=== PATIENT | male | born 1980 | race Caucasian/White ===

== ENCOUNTER 2017-10-16 18:46 | Emergency (ER) | payer OTHER ==
[~2017-10-16] VITALS: Ht 175.3 cm; Wt 110.0 kg
[2017-10-16 19:00] VITALS: TEMP 36.7; Ht 175.3 cm; Wt 110.0 kg
[2017-10-16] MEDS ORDERED: DOXE10CA PO (19:42)
[2017-10-16] MEDS ORDERED: SUMA25TA12 PO (19:42)
[2017-10-16] MEDS ORDERED: DEPRESSION MED PO (19:43)
[2017-10-16] MEDS ORDERED: CEFTRIAXONE SOD 350MG/ML 1 GM VIAL IM STA (20:42)
[2017-10-16] MEDS ORDERED: AZITHROMYCIN 250 MG TAB PO STA (20:42)
--- NOTE | 2017-10-16 20:50 | EMERGENCY ROOM VISIT NOTE ---
ED Visit Note First contact with patient: 19:03 CHIEF COMPLAINT: Burning with urination and penile discharge HISTORY OF PRESENT ILLNESS: This 37-year-old male patient presents to the emergency department, ambulatory, complaining of burning with urination and penile discharge for the past 2-3 days. The patient states he initially noticed the burning with urination, then today noticed a sticky, thick drainage coming from the tip of the penis which does appear to be blood tinged on his boxers. The patient states there is been no blood in his urine. He denies any systemic symptoms including fever, chills, nausea, vomiting, or abdominal pain. The patient denies any history of UTIs or STDs. He states he is sexually active, and did recently have a one night stand with a male partner approximately one month ago. The patient has taken no medication for the discomfort. REVIEW OF SYSTEMS: A 6 system review of systems was performed with positives and pertinent negatives listed in the history of present illness. All other systems were reviewed and are negative. ALLERGIES: None MEDICATIONS: Doxepin, Prozac PMH: Mood disorder SOCIAL HISTORY: The patient lives locally with family. He denies drug, alcohol , tobacco use. PHYSICAL EXAM: VITALS: Vitals are noted on the nurse's note and reviewed by myself. Vital signs stable. GENERAL: This is a 37-year-old white male, in no acute distress, nondiaphoretic , well-developed well-nourished. ABDOMEN - Abdominal contour normal without pulsations or visible masses. BS normoactive all four quadrants. No tenderness to palpation appreciated throughout. No palpable masses, hepatosplenomegaly, or ascites noted. GENITOURINARY - Circumcised male without penile lesions or adhesions. Thick, yellow urethral discharge. No testicular tenderness to palpation appreciated. No palpable masses. No blue dot sign. Urethral swab was obtained. PSYCH - A&Ox3 and cooperates fully with examiner. Pt is very pleasant and interacts well with examiner. EMERGENCY DEPARTMENT COURSE: The patient was seen and evaluated as above. Urethral swab obtained and urinalysis was ordered. Urinalysis did show blood, leukocyte esterase, and white blood cells. The abnormalities on the urinalysis are related to the penile discharge and possible STD, however I am still concerned for UTI. The patient will be treated prophylactically with Rocephin and azithromycin, and cultures will be ordered. The patient already has an appointment scheduled to follow up with his PCP on Thursday, so I encouraged him to keep this appointment to discuss culture results. The patient is in agreement with the assessment and plan. All questions were answered to his satisfaction. Discharge instructions reviewed, and the patient was discharged home in good position. I attest that I have personally reviewed the patient's current medication list. Patient was found to have normal blood pressure on screening and does not require follow-up. DIFFERENTIAL DIAGNOSIS: Gonorrhea, chlamydia, other STD, urinary tract infection , urethritis, Balanitis, malignancy, and others DIAGNOSIS: Dysuria, penile discharge, possible STD Current/Historical Medications Scheduled Doxepin (Sinequan), 10 MG PO HS Sumatriptan Succinate (Imitrex), 1 TAB PO PRN [Depression Med], 1 TAB PO DAILY Allergies Uncoded Allergies: BEES (Allergy, Severe, anaphalaxis, 10/16/17) Vital Signs Date Time Temp Pulse Resp B/P (MAP) Pulse Ox O2 Delivery O2 Flow Rate FiO2 10/16/17 21:06 88 18 121/71 96 10/16/17 19:00 36.7 97 18 126/79 95 Room Air Laboratory Results Test 10/16/17 19:30 10/16/17 19:35 Urine Color DK YELLOW Urine Appearance TURBID (CLEAR) Urine pH 5.0 (4.5-7.5) Urine Specific [place] 1.032 (1.000-1.030) Urine Protein TRACE (NEG) Urine Glucose (UA) NEG (NEG) Urine Ketones TRACE (NEG) Urine Occult Blood 2+ (NEG) Urine Nitrite NEG (NEG) Urine Bilirubin NEG (NEG) Urine Urobilinogen NEG (NEG) Urine Leukocyte Esterase LARGE (NEG) Urine WBC (Auto) >30 /hpf (0-5) Urine RBC (Auto) 5-10 /hpf (0-4) Urine Hyaline Casts (Auto) 1-5 /lpf (0-5) Urine Epithelial Cells (Auto) 0-5 /lpf (0-5) Urine Bacteria (Auto) NEG (NEG) Medications Administered Medications (Trade) Dose Ordered Sig/Yoli Route Start Time Stop Time Status Last Admin Dose Admin Ceftriaxone Sodium (Rocephin Im) 250 mg NOW STAT IM 10/16/17 20:42 10/16/17 20:45 DC 10/16/17 20:59 250 MG Azithromycin (Zithromax Tab) 1,000 mg NOW STAT PO 10/16/17 20:42 10/16/17 20:45 DC 10/16/17 20:59 1,000 MG Departure Information Impression Primary Impression: Dysuria Additional Impressions: Screening for STD (sexually transmitted disease) Penile discharge Dispostion Home / Self-Care Condition GOOD Referrals No Doctor, Assigned (PCP) Patient Instructions ED STD Male Treated, My [facility], STD Poss Additional Instructions You were seen in the emergency department today for dysuria and penile discharge. Based on examination and history, I do suspect STD. You were given 1 g azithromycin and 250 mg ceftriaxone in the emergency department to treat for STD. Cultures were obtained, and will be run. He will receive a phone call if cultures are positive. Please follow up with your PCP on Thursday at your regularly scheduled appointment for culture results and follow-up. Please refrain from sexual activity until you have received results of the testing. Always use a condom to protect against STD's. Return to the emergency department for worsening pain, dysuria, blood in the urine, fever, chills, nausea, vomiting, or other concerning symptoms. Problem Qualifiers
[2017-10-16 21:06] VITALS: BP 121/71; PULSE 88; O2SAT 96
== END 2017-10-16 21:06 | disposition home or self-care (01) ==
LOC: C.EDB 18:48 → C.EDD 21:06
DX: R30.0 Dysuria (principal); Z11.3 Encounter for screening for infections with a predominantly sexual mode of transmission; R36.9 Urethral discharge, unspecified; Z79.899 Other long term (current) drug therapy; Z91.030 Bee allergy status

== ENCOUNTER → 2017-10-20 | Outpatient (CLI) | payer OTHER ==
[~2017-10-20] MED LIST: DEPRESSION MED PO; DOXE10CA PO; SUMA25TA12 PO
[2017-10-20 12:13] LABS: BASO % 0.1 %; BASO ABS # 0.01 K/uL (0-0.2); EOS % 0.8 %; EOS ABS # 0.06 K/uL (0-0.5); HEMOGLOBIN 15.7 g/dL (14.0-18.0); IG# 0.02 K/uL (0.00-0.02); LYMPH % 40.6 %; LYMPH ABS # 2.87 K/uL (1.2-3.4); MEAN CELL VOLUME 93.3 fL (80-100); MEAN CORPUSCULAR HEMOGLOBIN 31.2 pg (25-34); MEAN CORPUSCULAR HGB CONC 33.4 g/dl (32-36); MEAN PLATELET VOLUME 9.4 fL (7.4-10.4); MONO % 5.5 %; MONO ABS # 0.39 K/uL (0.11-0.59); NEUT % 52.7 %; NEUT ABS # 3.72 K/uL (1.4-6.5); PLATELET COUNT 263 K/uL (130-400); RED CELL DISTRIBUTION WIDTH CV 13.2 % (11.5-14.5); RED CELL DISTRIBUTION WIDTH SD 44.8 fL (36.4-46.3); WHITE BLOOD COUNT 7.07 K/uL (4.8-10.8)
[2017-10-20 12:37] LABS: ALBUMIN 4.1 gm/dl (3.4-5.0); ALT/SGPT 65 U/L (12-78); AST/SGOT 31 U/L (15-37); BLOOD UREA NITROGEN 9 mg/dl (7-18); CALCIUM 9.7 mg/dl (8.5-10.1); CARBON DIOXIDE 28 mmol/L (21-32); CHOLESTEROL 208 mg/dl (0-200); CREATININE 0.84 mg/dl (0.60-1.40); GLUCOSE 84 mg/dl (70-99); SODIUM 140 mmol/L (136-145)
[2017-10-20 12:48] LABS: ALKALINE PHOSPHATASE 81 U/L (45-117); LDL CHOLESTEROL CALCULATED 125 mg/dl; TOTAL PROTEIN 8.2 gm/dl (6.4-8.2)
== END | disposition home or self-care (01) ==
LOC: C.LAB 11:30
PROVIDERS: ATTEND Neuromusculoskeletal Medicine & OMM
DX: Z00.00 Encounter for general adult medical examination without abnormal findings (principal); K76.0 Fatty (change of) liver, not elsewhere classified; E66.9 Obesity, unspecified; Z13.220 Encounter for screening for lipoid disorders; Z13.1 Encounter for screening for diabetes mellitus

== ENCOUNTER 2017-11-02 15:25 | Emergency (ER) | payer OTHER ==
[~2017-11-02] VITALS: Ht 175.3 cm; Wt 96.1 kg
[2017-11-02 16:08] VITALS: TEMP 36.7; Ht 175.3 cm; Wt 96.1 kg
[2017-11-02] MEDS ORDERED: EPP3/2 IM (16:16)
[2017-11-02] MEDS ORDERED: PARO1TAB29 PO (16:16)
--- NOTE | 2017-11-02 17:09 | DIAGNOSTIC IMAGING REPORT ---
PELVIS 1 OR 2 VIEW ROUTINE CLINICAL HISTORY: Right hip and thigh pain COMPARISON STUDY: No previous studies for comparison. FINDINGS: No fractures are visualized. There are no erosive or destructive changes. The joint space heights appear well-preserved for age. Surgical clips are visualized superior to the right iliac crest. IMPRESSION: No significant bony abnormalities Electronically signed by: Alfredo Osei M.D. 11/02/2017 5:07 PM Dictated Date/Time: 11/02/2017 5:07 PM
--- NOTE | 2017-11-02 17:10 | DIAGNOSTIC IMAGING REPORT ---
L-SPINE MIN 4 VIEWS ROUTINE CLINICAL HISTORY: Right hip/thigh pain. COMPARISON STUDY: No previous studies for comparison. FINDINGS: There is no pathologic bowel dilatation. There are surgical clips visualized superior to the right iliac crest. There are 5 lumbar type vertebral bodies. The disc space heights appear relatively well preserved. No fractures or subluxations are visualized. There are no erosive or destructive changes. IMPRESSION: 1. No fractures or subluxations identified 2. No erosive or destructive changes are visualized Electronically signed by: Alfredo Osei M.D. 11/02/2017 5:09 PM Dictated Date/Time: 11/02/2017 5:08 PM
--- NOTE | 2017-11-02 17:31 | DIAGNOSTIC IMAGING REPORT ---
RIGHT LOWER EXTREMITY VENOUS DOPPLER HISTORY: Right hip/thigh pain. Concerned for dvt COMPARISON STUDY: None. FINDINGS: There is normal compressibility, flow, and augmentation within the right lower extremity deep venous system. IMPRESSION: No DVT within the right lower extremity Electronically signed by: Taz Rainey M.D. 11/02/2017 5:30 PM Dictated Date/Time: 11/02/2017 5:30 PM
[2017-11-02 17:57] VITALS: BP 128/72; PULSE 92; O2SAT 98
--- NOTE | 2017-11-03 02:06 | EMERGENCY ROOM VISIT NOTE ---
History First contact with patient: 16:25 Chief Complaint: LEG PAIN,LEG INJURY Stated Complaint: BURNING & PULLING IN RT LEG History of Present Illness The patient is a 37 year old male who presents to the Emergency Room with complaints of a burning and pulling sensation in his right leg. The patient states he has had symptoms slowly worsening over the past week. He does not recall injury or trauma. Standing seems to make the pain worse. The patient was speaking with his coworkers about the pain, and became concerned for a blood clot. He is not having chest pain or shortness of breath. He rates his overall discomfort a 4/10. Review of Systems More than 10 systems were reviewed and otherwise negative with the exception of history of present illness. Past Medical/Surgical History No pertinent chronic medical disease Family History No pertinent family history Social History Smoking Status: Never Smoker Occupation Status: employed Current/Historical Medications Scheduled Doxepin (Sinequan), 10 MG PO HS Epinephrine (Epipen), 0.3 MG IM UD Paroxetine (Paxil), 40 MG PO QAM Sumatriptan Succinate (Imitrex), 1 TAB PO PRN Physical Exam Vital Signs Date Time Temp Pulse Resp B/P (MAP) Pulse Ox O2 Delivery O2 Flow Rate FiO2 11/02/17 17:57 92 16 128/72 98 11/02/17 16:08 36.7 99 18 126/84 97 Room Air Physical Exam VITALS: Vitals are noted on the nurse's note and reviewed by myself. Vital signs stable. GENERAL: Well-developed, well-nourished, white male, who is in no acute distress and resting comfortably. Patient is cooperative with the examination. HEART: Regular rate and rhythm without murmurs gallops or rubs. LUNGS: Clear to auscultation bilaterally without wheezes, rales or rhonchi. No retractions or accessory muscle use. MUSCULOSKELETAL: No muscle atrophy, erythema, or edema noted. Some mild tenderness is appreciated over the lateral posterior right thigh without obvious palpable cord or mass. No distinct low back tenderness. No saddle paresthesias. Negative Homans sign. Neurovascular status is intact distally. NEURO: Patient was alert and oriented to person place and time. CN II through XII grossly intact. Medical Decision & Procedures ER Provider Diagnostic Interpretation: RIGHT LOWER EXTREMITY VENOUS DOPPLER HISTORY: Right hip/thigh pain. Concerned for dvt COMPARISON STUDY: None. FINDINGS: There is normal compressibility, flow, and augmentation within the right lower extremity deep venous system. IMPRESSION: No DVT within the right lower extremity L-SPINE MIN 4 VIEWS ROUTINE CLINICAL HISTORY: Right hip/thigh pain. COMPARISON STUDY: No previous studies for comparison. FINDINGS: There is no pathologic bowel dilatation. There are surgical clips visualized superior to the right iliac crest. There are 5 lumbar type vertebral bodies. The disc space heights appear relatively well preserved. No fractures or subluxations are visualized. There are no erosive or destructive changes. IMPRESSION: 1. No fractures or subluxations identified 2. No erosive or destructive changes are visualized PELVIS 1 OR 2 VIEW ROUTINE CLINICAL HISTORY: Right hip and thigh pain COMPARISON STUDY: No previous studies for comparison. FINDINGS: No fractures are visualized. There are no erosive or destructive changes. The joint space heights appear well-preserved for age. Surgical clips are visualized superior to the right iliac crest. IMPRESSION: No significant bony abnormalities ED Course Physical exam and history were performed. Nursing notes, EMR, and Medication List were personally reviewed. Patient appears to have reports of right leg pain for the past few days. The location is roughly along the posterior and proximal right thigh where the patient is complaining of his discomfort. His physical exam is fairly unremarkable. I did elect to perform x-rays of the pelvis and leg. Ultrasound was also performed. The patient imaging studies are as above and were reviewed by myself and radiology as showing no significant acute findings. Overall I suspect the patient's discomfort is musculoskeletal in nature. He will need to follow with his primary care physician for further management. He was otherwise invited back to the ER with any new or worsening, or concerning symptoms. The chart was completed utilizing [employer] Speech Voice Recognition Software. Grammatical errors, random word insertions, pronoun errors, and incomplete sentences are an occasional consequence of this system due to software limitations, ambient noise, and hardware issues. Any formal questions or concerns about the content, text, or information contained within the body of this dictation should be directly addressed to the provider for clarification. . Medical Decision Differential diagnoses includes, but is not limited to: Sprain, strain, fracture , dislocation, subluxation, contusion, dvt, and others Impression Primary Impression: Right leg pain Departure Information Dispostion Home / Self-Care Condition GOOD Forms HOME CARE DOCUMENTATION FORM, IMPORTANT VISIT INFORMATION Patient Instructions My [facility] Additional Instructions You were seen and evaluated today on an emergency basis only. This is not a substitute for, or an effort to provide, complete comprehensive medical care. It is not possible to recognize and treat all injuries or illnesses in a single emergency department visit. For this reason it is recommended that you followup with your primary care physician this week for recheck. For baseline pain relief you may alternate ibuprofen and acetaminophen every 4 hours for pain control. Take 600 mg ibuprofen (Advil) and then 4 hours later take 1000 mg acetaminophen (Tylenol). Do not take more than 3000 mg acetaminophen in a single day. You are welcome to return to the emergency department anytime with new, worsening, or concerning symptoms.
== END 2017-11-02 17:52 | disposition home or self-care (01) ==
LOC: C.EDB 15:26 → C.EDD 17:52
DX: M79.604 Pain in right leg (principal); Z79.899 Other long term (current) drug therapy

== ENCOUNTER 2017-11-23 11:12 | Emergency (ER) | payer OTHER ==
[~2017-11-23] VITALS: Ht 175.3 cm; Wt 106.9 kg
[2017-11-23 11:20] VITALS: Ht 175.3 cm; Wt 106.9 kg
[2017-11-23] MEDS ORDERED: MULT-506 PO (12:23)
[2017-11-23] MEDS ORDERED: ASCA500 (12:23)
[2017-11-23 12:53] LABS: INFLUENZA B ANTIGEN Neg for Influ B (NEG)
[2017-11-23 12:54] LABS: BASO % 0.3 %; BASO ABS # 0.02 K/uL (0-0.2); EOS % 1.4 %; EOS ABS # 0.09 K/uL (0-0.5); HEMATOCRIT 46.9 % (42-52); IG# 0.01 K/uL (0.00-0.02); LYMPH % 33.7 %; LYMPH ABS # 2.12 K/uL (1.2-3.4); MEAN CELL VOLUME 92.3 fL (80-100); MEAN CORPUSCULAR HEMOGLOBIN 31.5 pg (25-34); MEAN CORPUSCULAR HGB CONC 34.1 g/dl (32-36); MEAN PLATELET VOLUME 9.2 fL (7.4-10.4); MONO % 10.5 %; MONO ABS # 0.66 K/uL (0.11-0.59); NEUT % 53.9 %; PLATELET COUNT 226 K/uL (130-400); RED CELL DISTRIBUTION WIDTH CV 13.2 % (11.5-14.5); RED CELL DISTRIBUTION WIDTH SD 44.8 fL (36.4-46.3)
--- NOTE | 2017-11-23 12:56 | DIAGNOSTIC IMAGING REPORT ---
PA CHEST WITH ABDOMINAL SERIES CLINICAL HISTORY: Cough. Sore throat. Vomiting. FINDINGS: A PA chest radiograph is obtained. No prior studies are available for comparison at the time of dictation. The cardiomediastinal silhouette is unremarkable. There is dense airspace consolidation in the right midlung. The left lung appears clear. No large pleural effusion or Pneumothorax is seen. The bony thorax is grossly intact. Supine and erect abdominal radiographs are correlated with pelvic radiograph dated 11/02/2018. There is a nonobstructed abdominal bowel gas pattern. Surgical clips are noted in the right lower quadrant. No evidence of intraperitoneal free air is seen. There are no abnormal abdominal calcifications. The lumbosacral spine and bony pelvis appear intact. IMPRESSION: 1. There is dense airspace consolidation in the right midlung typical in appearance for pneumonia. Radiographic follow-up to resolution is recommended. 2. Nonobstructed abdominal bowel gas pattern. Electronically signed by: Eulogio Yuen M.D. 11/23/2017 12:54 PM Dictated Date/Time: 11/23/2017 12:53 PM
[2017-11-23 13:12] LABS: ALBUMIN 4.2 gm/dl (3.4-5.0); CALCIUM 9.3 mg/dl (8.5-10.1); CREATININE 0.9 mg/dl (0.60-1.40); POTASSIUM 4.7 mmol/L (3.5-5.1)
[2017-11-23 13:15] LABS: TOTAL PROTEIN 8.1 gm/dl (6.4-8.2)
[2017-11-23] MEDS ORDERED: DOXYCYCLINE HYCLATE 100 MG CAP PO STA (13:21)
[2017-11-23] MEDS ORDERED: DOXY100C PO (13:23)
[2017-11-23 13:31] VITALS: BP 117/89; PULSE 91; TEMP 37; O2SAT 96
[2017-11-23] MEDS ORDERED: EPP3/2 IM (16:16)
[2017-11-23] MEDS ORDERED: PARO1TAB29 PO (16:16)
[2017-11-23] MEDS ORDERED: SUMA25TA12 PO (19:42)
[2017-11-23] MEDS ORDERED: DOXE10CA PO (19:42)
--- NOTE | 2017-11-25 18:41 | EMERGENCY ROOM VISIT NOTE ---
History Report prepared by Manolo: Heriberto Jacob Under the Supervision of: Dr. Nicolas Duncan D.O. First contact with patient: 11:24 Chief Complaint: FLU LIKE SX Stated Complaint: COUGH,SORE THROAT, RUNNY NOSE,VOMITING,CHEST PAIN History of Present Illness The patient is a 37 year old male who presents to the Emergency Room with complaints of moderate flu-like symptoms that began three days ago. He has a past medical history of an appendectomy and a right-sided benign mass removal from his abdomen. A couple of days ago, the patient began to experience some flu -like symptoms including a productive cough with green phlegm, sore throat, and rhinorrhea. He began to take NyQuil at night to help him sleep and to not cough , but his cough would return in the morning. Yesterday, he attempted to eat a peanut butter sandwich but then experienced one episode of vomiting. He has not been able to eat since, but has not vomited either. He has also been having diffuse body aches. Pt denies headache, change in vision, fevers, chest pain, shortness of breath, abdominal pain, nausea, diarrhea, pain with urination, and melena. His last bowel movement was this morning and was normal. He received his influenza immunization this year. He notes some mild ear ringing without pain. Source of History: patient Onset: three days ago Position: other (Global) Symptom Intensity: moderate Quality: other (Flu-like symptoms) Timing: constant Associated Symptoms: + cough, + vomiting, No fevers, No headache, No chest pain, No SOB, No nausea, No abdominal pain, No melena, No diarrhea, No urinary symptoms Note: He has been experiencing mild ear ringing without pain, diffuse body aches, and rhinorrhea. Review of Systems See HPI for pertinent positives & negatives. A total of 10 systems reviewed and were otherwise negative. Past Medical & Surgical No chronic past medical history Family History Patient reports no known family medical history. Social History Smoking Status: Never Smoker Smokeless Tobacco Use: No Drug Use: none Occupation Status: employed Current/Historical Medications Scheduled Doxepin (Sinequan), 10 MG PO HS Doxycycline Hyclate (Vibramycin), 100 MG PO BID Epinephrine (Epipen), 0.3 MG IM UD Multivitamin (Multivitamin), 1 TAB PO DAILY Paroxetine (Paxil), 40 MG PO QAM Sumatriptan Succinate (Imitrex), 1 TAB PO PRN Miscellaneous Medications Ascorbic Acid (Vitamin C) Allergies Coded Allergies: BEE STING (Unverified Allergy, Unknown, , 11/23/17) Uncoded Allergies: BEES (Allergy, Severe, anaphalaxis, 10/16/17) Physical Exam Vital Signs Date Time Temp Pulse Resp B/P (MAP) Pulse Ox O2 Delivery O2 Flow Rate FiO2 11/23/17 13:31 37.0 91 18 117/89 96 Room Air 11/23/17 12:25 37.2 88 18 126/89 97 Room Air 11/23/17 11:20 36.7 107 20 126/90 95 Room Air Physical Exam GENERAL: Sitting up in bed with a dry nonproductive cough, talking in full sentences, alert, well appearing, well nourished, no distress, non-toxic EYE EXAM: normal conjunctiva. PERRL and EOM's grossly intact. OROPHARYNX: no exudate, no erythema, lips, buccal mucosa, and tongue normal and mucous membranes are moist NECK: supple, no nuchal rigidity, no adenopathy, non-tender LUNGS: Clear to auscultation. Normal chest wall mechanics HEART: no murmurs, S1 normal and S2 normal ABDOMEN: abdomen soft, non-tender, normo-active bowel sounds, no masses, no rebound or guarding. BACK: Back is symmetrical on inspection and there is no deformity, no midline tenderness, no CVA tenderness. Old scar noted to the right lower back. SKIN: no rashes and no bruising UPPER EXTREMITIES: upper extremities are grossly normal. LOWER EXTREMITIES: No pitting edema. NEURO EXAM: Normal sensorium, cranial nerves II-XII grossly intact, normal speech, no gross weakness of arms, no gross weakness of legs. Medical Decision & Procedures ER Provider Diagnostic Interpretation: Radiology results as stated below per my review and the radiologist's interpretation: PA CHEST WITH ABDOMINAL SERIES CLINICAL HISTORY: Cough. Sore throat. Vomiting. FINDINGS: A PA chest radiograph is obtained. No prior studies are available for comparison at the time of dictation. The cardiomediastinal silhouette is unremarkable. There is dense airspace consolidation in the right midlung. The left lung appears clear. No large pleural effusion or Pneumothorax is seen. The bony thorax is grossly intact. Supine and erect abdominal radiographs are correlated with pelvic radiograph dated 11/02/2018. There is a nonobstructed abdominal bowel gas pattern. Surgical clips are noted in the right lower quadrant. No evidence of intraperitoneal free air is seen. There are no abnormal abdominal calcifications. The lumbosacral spine and bony pelvis appear intact. IMPRESSION: 1. There is dense airspace consolidation in the right midlung typical in appearance for pneumonia. Radiographic follow-up to resolution is recommended. 2. Nonobstructed abdominal bowel gas pattern. Electronically signed by: Eulogio Yuen M.D. 11/23/2017 12:54 PM Dictated Date/Time: 11/23/2017 12:53 PM Laboratory Results 11/23/17 12:28 Red Blood Count 5.08, Mean Corpuscular Volume 92.3, Mean Corpuscular Hemoglobin 31.5, Mean Corpuscular Hemoglobin Concent 34.1, Mean Platelet Volume 9.2, Neutrophils (%) (Auto) 53.9, Lymphocytes (%) (Auto) 33.7, Monocytes (%) (Auto) 10.5, Eosinophils (%) (Auto) 1.4, Basophils (%) (Auto) 0.3, Neutrophils # (Auto ) 3.40, Lymphocytes # (Auto) 2.12, Monocytes # (Auto) 0.66, Eosinophils # (Auto ) 0.09, Basophils # (Auto) 0.02 11/23/17 12:28 Test 11/23/17 12:00 11/23/17 12:28 Influenza Type A Antigen Neg for Influ A (NEG) Influenza Type B Antigen Neg for Influ B (NEG) White Blood Count 6.30 K/uL (4.8-10.8) Red Blood Count 5.08 M/uL (4.7-6.1) Hemoglobin 16.0 g/dL (14.0-18.0) Hematocrit 46.9 % (42-52) Mean Corpuscular Volume 92.3 fL (80-100) Mean Corpuscular Hemoglobin 31.5 pg (25-34) Mean Corpuscular Hemoglobin Concent 34.1 g/dl (32-36) Platelet Count 226 K/uL (130-400) Mean Platelet Volume 9.2 fL (7.4-10.4) Neutrophils (%) (Auto) 53.9 % Lymphocytes (%) (Auto) 33.7 % Monocytes (%) (Auto) 10.5 % Eosinophils (%) (Auto) 1.4 % Basophils (%) (Auto) 0.3 % Neutrophils # (Auto) 3.40 K/uL (1.4-6.5) Lymphocytes # (Auto) 2.12 K/uL (1.2-3.4) Monocytes # (Auto) 0.66 K/uL (0.11-0.59) Eosinophils # (Auto) 0.09 K/uL (0-0.5) Basophils # (Auto) 0.02 K/uL (0-0.2) RDW Standard Deviation 44.8 fL (36.4-46.3) RDW Coefficient of Variation 13.2 % (11.5-14.5) Immature Granulocyte % (Auto) 0.2 % Immature Granulocyte # (Auto) 0.01 K/uL (0.00-0.02) Anion Gap 7.0 mmol/L (3-11) Est Creatinine Clear Calc Drug Dose 135.4 ml/min Estimated GFR () 126.0 Estimated GFR (Non- 108.7 BUN/Creatinine Ratio 12.9 (10-20) Calcium Level 9.3 mg/dl (8.5-10.1) Total Bilirubin 0.5 mg/dl (0.2-1) Direct Bilirubin 0.1 mg/dl (0-0.2) Aspartate Amino Transf (AST/SGOT) 22 U/L (15-37) Alanine Aminotransferase (ALT/SGPT) 47 U/L (12-78) Alkaline Phosphatase 80 U/L (45-117) Total Protein 8.1 gm/dl (6.4-8.2) Albumin 4.2 gm/dl (3.4-5.0) Lipase 586 U/L (73-393) Date/Time Source Procedure Growth Status 11/23/17 12:00 Throat Group A Streptococcus Screen - Final SPECIMEN NEGATIVE FOR GROUP A BETA ST... Complete 11/23/17 12:00 Throat Group A Streptococcus Screen ([facility]) - Final NO GROUP A BETA STREP ISOLATED. Complete Laboratory results per my review. Medications Administered Medications (Trade) Dose Ordered Sig/Yoli Route Start Time Stop Time Status Last Admin Dose Admin Doxycycline Hyclate (Vibramycin Cap) 100 mg NOW STAT PO 11/23/17 13:21 11/23/17 13:22 DC 11/23/17 13:32 100 MG ECG Per My Interpretation Indication: tachycardia Rate (beats per minute): 88 Rhythm: sinus rhythm Findings: no ectopy, other (normal axis) ED Course ED COURSE: Vital signs were reviewed and showed tachycardia The patients medical record was reviewed The above diagnostic studies were performed and reviewed. ED treatments and interventions as stated above. 1124: The patient was evaluated in room C11. A complete history and physical examination was performed. 1250: The patient informed the nurse that she felt as if her blood sugar was going to "tank." Nursing staff found her BSG to be 595 and then 546 after recheck. She told us that she is currently taking Prednisone for her gout. 1321: Ordered Vibramycin Cap 100 mg PO 1330: Upon reevaluation, the patient is resting.I discussed my findings with the patient and she understands and agrees with the treatment plan. Based on the patients age, coexisting illnesses, exam and lab findings the decision to treat as an outpatient was made. The patient remained stable while under my care. The patient appeared well at the time of discharge. Medical Decision Differential diagnosis: Etiologies such as viral syndrome, otitis, pharyngitis, pneumonia, influenza, meningitis, urinary tract infection, sepsis, bacteremia, as well as others were entertained. Patient is a 37-year-old male that presents to ER with the above complaint. CBC along with BMP, LFTs, bilirubin was unremarkable. Lipase was slightly elevated at 580. He has no epigastric abdominal pain. Chest x-ray confirms pneumonia. Patient was given doxycycline. He is otherwise well-appearing. Vitals are unremarkable. He was discharged without Sieckman to follow-up with PCP as an outpatient. Discussed with Pt concerning signs and symptoms to watch out for. Pt was instructed to follow up with their PCP and discussed with the patient their option to return to the ED at anytime for persistent or worsening symptoms. The appropriate anticipatory guidance and out-patient management, including indications for return to the emergency department, were explained at length to the patient and understood. Medication Reconcilliation Current Medication List: was personally reviewed by me Blood Pressure Screening Patient's blood pressure: Normal blood pressure Blood pressure disposition: Did not require urgent referral Impression Primary Impression: Pneumonia Scribe Attestation The scribe's documentation has been prepared under my direction and personally reviewed by me in its entirety. I confirm that the note above accurately reflects all work, treatment, procedures, and medical decision making performed by me. Departure Information Dispostion Home / Self-Care Prescriptions Doxycycline Hyclate (VIBRAMYCIN) 100 Mg Cap 100 MG PO BID for 10 Days, CAP Prov: Nicolas Duncan, DO 11/23/17 Referrals Wai Dietz D.O. (PCP) Forms HOME CARE DOCUMENTATION FORM, IMPORTANT VISIT INFORMATION Patient Instructions My [facility], Pneumonia (Bacterial) - [facility] Additional Instructions Please follow up with your primary care doctor with in the next 24 hours. Any worsening of your symptoms, please return to the ED immediately. This includes any fevers greater than 100.4, worsening pain, chest pain, shortness breath, persistent nausea, vomiting, unable to eat or drink, or any other concerning signs or symptoms from your standpoint. Please take your antibiotics as prescribed. Problem Qualifiers Primary Impression: Pneumonia Pneumonia type: due to unspecified organism Laterality: unspecified laterality Lung location: unspecified part of lung Qualified Codes: J18.9 - Pneumonia, unspecified organism
== END 2017-11-23 13:40 | disposition home or self-care (01) ==
LOC: C.EDB 11:12 → C.EDC 13:40
DX: J18.9 Pneumonia, unspecified organism (principal); R00.0 Tachycardia, unspecified; Z91.030 Bee allergy status

== ENCOUNTER → 2018-05-12 | Outpatient (CLI) | payer OTHER ==
[~2018-05-12] MED LIST changes: +ASCA500; -DEPRESSION MED PO; +EPP3/2 IM; +MULT-506 PO; +PARO1TAB29 PO
[2018-05-12 10:42] LABS: ALBUMIN 4.1 gm/dl (3.4-5.0); ALKALINE PHOSPHATASE 80 U/L (45-117); ALT/SGPT 37 U/L (12-78); AST/SGOT 18 U/L (15-37); BLOOD UREA NITROGEN 8 mg/dl (7-18); CALCIUM 9.2 mg/dl (8.5-10.1); CARBON DIOXIDE 30 mmol/L (21-32); CHOLESTEROL 194 mg/dl (0-200); GLUCOSE 79 mg/dl (70-99); LDL CHOLESTEROL CALCULATED 103 mg/dl; POTASSIUM 3.9 mmol/L (3.5-5.1); SODIUM 139 mmol/L (136-145); TOTAL PROTEIN 7.7 gm/dl (6.4-8.2)
== END | disposition home or self-care (01) ==
LOC: C.LAB 09:35
PROVIDERS: ATTEND Neuromusculoskeletal Medicine & OMM
DX: K76.0 Fatty (change of) liver, not elsewhere classified (principal); E78.5 Hyperlipidemia, unspecified